=== PATIENT | female | born 1990 | race Caucasian/White ===

== ENCOUNTER 2024-06-18 08:52 | Emergency (ER) | payer MEDICAID ==
[~2024-06-18] VITALS: Ht 160 cm; Wt 90.7 kg
[2024-06-18 09:01] VITALS: BP_SYST 124; PULSE 60; RESP 17; TEMP 97.8; O2SAT 96
[2024-06-18 09:10] VITALS: BP_SYST 124; PULSE 60; RESP 17; TEMP 97.8; O2SAT 96
== END 2024-06-18 09:19 | disposition home or self-care (01) ==
LOC: SED 08:52
DX: Z02.89 Encounter for other administrative examinations (principal)
CPT/HCPCS: 99283